=== PATIENT | female | born 1960 | race Caucasian/White ===

== ENCOUNTER 2023-09-16 15:52 | Emergency (ER) | payer BC, SELFPAY ==
[2023-09-16 15:55] VITALS: BP 185/89; PULSE 66; RESP 16; TEMP 36.4; O2SAT 99; BMI 21.6
[2023-09-16 16:31] VITALS: BP 182/100
--- NOTE | 2023-09-16 16:40 | ED_ITS ---
HPI - General Adult General Date Seen: 09/16/23 Chief complaint: Dizziness/Vertigo Stated complaint: Dizzy, disoriented--hit head 5 days ago Time Seen by Provider: 09/16/23 16:39 History of Present Illness HPI narrative: 63-year-old female presenting to the ER today with her for evaluation of head injury and dizziness. She thinks of herself is generally healthy and really does not go to doctors. She does not have any diagnoses and does not take any prescription meds. She does take some ulgq-ahc-[id number] supplements. She is a nonsmoker. She recalls that she and her always sleep in a very dark bedroom. She got up to go to the bathroom in the middle of the night 5 or 6 nights ago. She was trying to walk back to the bedroom in the dark and apparently bumped against a dresser and then fell. Is not exactly clear how she fell or what part of her body hit the floor or the dresser but she did suffer head injury. She says she was not knocked out but her heard her fall and thought that she was initially dazed. She noticed that she had some pain on the right occipital skull. She noticed that she formed a ?goose egg? in that location. She has been having pain in that ?goose egg? ever since but has been getting slowly smaller over the interval 5 days. She has had some mild headaches. She has not really had other symptoms. No blurry vision, dizziness, nausea, photophobia. No focal neurologic deficits. Yesterday she drove her car and felt fine while driving. She has been walking normally. No history of bleeding problems. No anticoagulants. No regular meds. Today she was driving in her car and and beginning around 2:30 p.m. had an episode where she got very dizzy and unsteady and shaky. It sounds like the dizziness was something like vertigo, but not exactly spinning. She was nauseous but did not throw up. Her eyes were light sensitive. No other symptoms with the episode. No focal numbness or tingling or weakness in her arms or legs. No slurred speech. No confusion. She still has a headache which has been ongoing since her head injury 5 days ago, and it did get worse during the episode, but is fading back to baseline now. She says she was having trouble walking because she was so dizzy but now that she is here in the ER she says it is gone. Her balance is back to normal and her dizziness is gone. She is not nauseous. No confusion. Related Data Home Medications Medication Instructions Recorded Confirmed No Known Home Medications 09/16/23 09/16/23 Allergies Allergy/AdvReac Type Severity Reaction Status Date / Time No Known Drug Allergies [facility] Ver[facility] 09[facility]16/23 16[facility]00 [facility] Social History Smoking Status: Unknown if ever smoked How often do you have a drink containing alcohol: never AUDIT-C Alcohol total score: 0 Non-prescribed substance use: denies use service: No Exam Narrative: Exam Narrative: Constitutional: Appears well-developed and well-nourished. Alert. Conversant. Non toxic. HENT: Head: She does have a 3 cm occipital scalp hematoma. No palpable depressed skull fracture. There is a fairly long band of purplish/yellowish ecchymosis at the top of the neck at the base of the skull on the right side it abuts but does not get up will onto the mastoid. Unclear if this is just blood that is tract downward under her scalp from her scalp hematoma or if this actually is a cochran sign. No bleeding on the left side. No hemotympanum bilaterally. Face is uninjured. TMJs are normal. Nose: Nose normal. Mouth/Throat: Oral mucosa is clear and moist. no trismus. Pharynx normal. Tonsils symmetric. No tonsillar enlargement, erythema, or exudate. Eyes: Conjunctivae normal. EOM normal. Pupils equal, round, and reactive to light. No scleral icterus. Neck: Normal range of motion. Neck supple. No tracheal deviation present. Cardiovascular: Normal rate, regular rhythm. No gallop. No friction rub. No murmur heard. Symmetric radial artery pulses Pulmonary/Chest: Effort normal. No stridor. No respiratory distress. No wheezes. No rales. No rhonchi . No tenderness. Abdominal: Soft. Bowel sounds normal. No distension. No mass. No tenderness. No rebound. No guarding. Musculoskeletal: No C, T, L-spine midline tenderness. RUE: Normal range of motion. No tenderness. No deformity LUE: Normal range of motion. No tenderness. No deformity RLE: Normal range of motion. No edema. No tenderness. No deformity LLE: Normal range of motion. No edema. No tenderness. No deformity Lymph: No cervical adenopathy. Neurological: Mental status normal. Attention normal. Alert and oriented x3. GCS 15. Memory normal. Speech fluent. Cognition normal. Cranial Nerves intact II-XII except I did not formally test gag or visual acuity. EOMI. Palate elevates symmetrically and tongue protrudes in the midline. Strength: 5/5 trapezius on the right and left 5/5 deltoid on the right and left 5/5 biceps on the right and left 5/5 triceps on the right and left 5/5 novelty maker on the right and left 5/5 thumb opposition on the right and le ft 5/5 finger abduction on the right and le ft 5/5 hip flexors (L3) on the right and le ft 5/5 quadriceps (L4) on the right and lef t 5/5 tibialis anterior on the right and l eft 5/5 EHL (L5) on the right and left 5/5 gastrocnemius (S1) on the right and left 5/5 hamstring on the right and left Sensation intact to light touch in both upper extremities (C4-T1) Sensation intact to light touch in Both lower extremities (L4-S1). Finger to nose and coordination normal. Romberg normal. Gait normal. Skin: Skin is warm and dry. No rash noted. No pallor. Normal capillary refill. Psychiatric: Normal mood. Normal affect. Const: Vital Signs, click to edit/add: Vital Signs - 24 hr 09/16/23 15:55 09/16/23 16:31 Temperature 97.5 F L Pulse Rate [Pulse Oximeter] 66 Respiratory Rate 16 Blood Pressure [Ri ght Upper Arm] 185/89 H 182/100 H Pulse Oximetry 99 Oxygen Delivery Me thod Room Air Course Course ED Course: Initial history and exam performed in ER bed 1. Given concerning bruising on the upper portion of the neck/base of the skull I do feel that head CT imaging is indicated. Discussed options with the patient and her . I informed than that at this point we do not have any ability to have radiology reading head CT. Therefore best option would be to transfer to a facility where they have radiology functioning so they can have CT scan of her head read by radiologist. We also discussed that if we did a head CT scan here in [facility], they would likely be over-read by radiologist tomorrow. I could attempt to do a preliminary read myself to look for any major intracranial hemorrhages or obvious skull fractures. I discussed with the patient and her that I am not a radiologist and that there is a real chance I could miss subtle (but clinically significant) findings. My recommendation was to transfer. Ultimately though they really do not want to transfer. They want to get a CT scan here. Reevaluation(s) Reevaluation #1: Recheck-head CT scan images are available. I reviewed the patient's images myself. I do not see any apparent intracranial hemorrhage, subdural or epidural hematoma. No visible skull fracture on the bone windows. I do not see any pneumocephalus. Reevaluation #2: Recheck-patient was very anxious and did not want my recommended labs. She was refusing lab draw. At this point I do think she has medical decision-making capacity. She understands that we cannot rule out other conditions without further workup. She is declining lab draw. Vital Signs Vital signs: Initial Vital Signs Temperature 97.5 F L 09/16/23 15:55 Temperature Source Temporal Artery Scan 09/16/23 15:55 Pulse Rate 66 09/16/23 15:55 Respiratory Rate 16 09/16/23 15:55 Blood Pressure 185/89 H 09/16/23 15:55 Blood Pressure Mean 121 H 09/16/23 15:55 Blood Pressure Position Sitting 09/16/23 15:55 Pulse Oximetry 99 09/16/23 15:55 Oxygen Delivery Method Room Air 09/16/23 15:55 Vital Signs Temperature 97.5 F L 09/16/23 15:55 Pulse Rate 66 09/16/23 15:55 Respiratory Rate 16 09/16/23 15:55 Blood Pressure 185/89 H 09/16/23 15:55 Pulse Oximetry 99 09/16/23 15:55 Oxygen Delivery Method Room Air 09/16/23 15:55 Temperature 97.5 F L 09/16/23 15:55 Pulse Rate 66 09/16/23 15:55 Respiratory Rate 16 09/16/23 15:55 Blood Pressure 182/100 H 09/16/23 16:31 Pulse Oximetry 99 09/16/23 15:55 Oxygen Delivery Method Room Air 09/16/23 15:55 Medications Administered Medications: Discontinued Medications Generic Name Dose Route Start Last Admin Trade Name Sissy PRN Reason Stop Dose Admin Acetaminophen 1,000 mg 09/16/23 17:19 09/16/23 17:40 Acetaminophen 500 Mg Tablet PO 09/16/23 17:20 1,000 mg ONCE ONE Administration Medical Decision Making MDM Narrative Medical decision making narrative: This patient presents with blunt head trauma. She had a mechanical fall that occurred in her bedroom fiber 6 nights ago. She has had an occipital right- sided scalp hematoma since then. On my exam she does have a residual hematoma and also has a fair amount of blood right down at the base of the skull just inferior to the neutral ridge along the right side. Concern here is for possible basal skull fracture as well as s intracranial injuries (e.g. skull fracture, epidural hematoma, subdural hematoma, intracerebral hemorrhage, and traumatic subarachnoid hemorrhage), verses concussion or other traumatic brain injury. I had a long discussion with the patient and her about our radiology department. At this point we do not have Radiology to read her scan. They do not want to transfer to another hospital. Therefore CT imaging was obtained and fortunately was normal by my read. It is possible that the patient's symptoms are due to a concussion. Differential for this dizzy spell is also broader. Consider possible cardiac arrhythmia, blood sugar disturbance, TIA. Discussed possible further workup wit h labs but patient is declining lab draw and further workup. . Therefore for now will, we will have to presume that her symptoms might be related to post concussive syndrome. She is cautioned to return to the ER immediately with any recurrent dizzy spells or other concerning symptoms. We will contact her at her cell phone [phone] if there is any discrepancy noted on the radiology over read. The patient/family understand that they must return if any red flags appear/develop in the coming hours/days, as this may represent an indication to perform a repeat CT scan or further evaluation. I have noted that red flags include: headaches that get worse, increased drowsiness, strange behavior, repetitive speech, seizures, repeated vomiting, growing confusion, increased irritability, slurred speech, weakness or numbness, and loss of responsiveness. This information will also be provided in writing at discharge. I have discussed the second impact syndrome, and the importance of not sustaining repeated concussion in the next 1-2 weeks. The patient's questions have been answered. They have a responsible adult to accompany them home. Imaging Data CT scan - head: Attestation: I have reviewed the pertinent imaging results. My impression: No bleed or skull fracture, per Dr. Anne Discharge Plan Discharge Clinical Impression: Dizziness, Hematoma of scalp, Head injury Patient Disposition: Home, Self-Care Condition: Stable Instructions: Head Injury (DC), Dizziness (ED) Additional Instructions: As we discussed, please return to the ER right away if you have any concerns especially worsening headache, any more dizzy spells, blurry vision, light sensitivity, nausea, or any other symptoms. Remember, your head CT has not been read by the radiologist yet. They will likely read tomorrow morning. If there is any finding that we did not tell you about today, we will call you on the phone tomorrow. Prescriptions: No Action No Known Home Medications Follow Up/Referrals: Wil Velasquez PA-C [Physician [employer] Supervisor] - Stand Alone Forms: [employer] Info Instructions
--- NOTE | 2023-09-16 17:19 | CT_ITS ---
Final Report Patient: JACKY LOS OLIVOS Facility:?[facility] Patient ID:?[id number] Site Patient ID:?[id number]. Site :?[id number] Study:?CT Head W/O-09/16/2023 5:54:36 PM Ordering Physician:MIKEY Final Report: TECHNIQUE: Non-contrast CT of the head is submitted. No comparisons. FINDINGS: The ventricles, sulci and gyri are of normal size, shape and contour. Midline structures are centrally located. No convincing evidence of intra- or extra-axial fluid collections. IMPRESSION: No radiographic evidence of acute intracranial abnormalities. Please note that all CT scans at this facility use dose modulation, iterative reconstruction, and/or weight-based dosing when appropriate to reduce radiation dose to as low as reasonably achievable. Dictated by: Adi Voss MD @ 09/16/2023 20:03:03 (Electronic Signature)
[2023-09-16] MEDS: ACETAMINOPHEN 500 MG TABLET 1000 MG PO (17:40)
--- NOTE | 2023-09-16 18:32 | ED.NURSE ---
Bruising to right side of neck and back of head from fall. Pt reports not knowing if she hit the floor or the closet door when she fell as it was dark in her room when she fell. Lump felt towards top, right side of the back of the head. Dr. Anne aware of injury.
--- NOTE | 2023-09-16 18:33 | ED.NURSE ---
Patient refusing blood work. States she is afraid of needles and would not like her blood drawn at this time due to her fear. Lab attempted a draw earlier in pt's stay but was unsuccessful. Pt then declined a second attempt at blood draw.
== END 2023-09-16 18:45 | disposition home or self-care (01) ==
PROVIDERS: Emergency Provider Emergency Medicine
DX: R42 Dizziness and giddiness (principal); S00.03XA Contusion of scalp, initial encounter; W19.XXXA Unspecified fall, initial encounter
CPT/HCPCS: 70450; 80048; 85025; 85610; 99284; A9270

== ENCOUNTER 2024-09-20 12:11 | Outpatient (CLI) | payer BC, SELFPAY ==
[2024-09-22 16:44] LABS: HPV Source Cervix; HPV, High Risk by TMA Not Detected
== END 2024-09-20 12:12 | disposition home or self-care (01) ==
PROVIDERS: PCP Family Medicine; Visit Provider Physician Assistant
DX: Z12.4 Encounter for screening for malignant neoplasm of cervix (principal); Z11.51 Encounter for screening for human papillomavirus (HPV)
CPT/HCPCS: 87624; 87625; 88141; 88142

== ENCOUNTER 2024-12-07 14:34 | Outpatient (CLI) | payer BC, SELFPAY ==
--- NOTE | 2024-12-07 14:40 | CRLHL7_ITS ---
For Patients: As a result of the Century Cures Act, medical imaging exams and procedure reports are released immediately into your electronic medical record. You may view this report before your referring provider. If you have questions, please contact your health care provider. INDICATION: BILATERAL SCREENING MAMMOGRAM, ASYMPTOMATIC 64 F COMPARISON: 09/01/19, 06/08/18, 04/15/17 TECHNIQUE: CC and MLO views were obtained. These mammographic images have been obtained using full-field digital technique. These mammographic images were interpreted with the benefit of computer aided detection and tomosynthesis. BREAST COMPOSITION: The breasts are heterogeneously dense, which may obscure small masses. FINDINGS: No suspicious findings. ASSESSMENT: BI-RADS 2 Benign RECOMMENDATION: Annual screening mammogram. A lay language report of this examination will be provided to the patient. Dictated by: Robert Cabrera MD @ 12/10/2024 11:31:59 (Electronically Signed)
== END 2024-12-07 14:35 | disposition home or self-care (01) ==
LOC: MAMMO 14:35
PROVIDERS: PCP Family Medicine; Visit Provider Physician Assistant
DX: Z12.31 Encounter for screening mammogram for malignant neoplasm of breast (principal); R92.333 Mammographic heterogeneous density, bilateral breasts
CPT/HCPCS: 77063; 77067